=== PATIENT | male | born 1990 | race Caucasian/White ===

== ENCOUNTER 2018-06-05 17:28 | Inpatient (IN) | payer OTHER ==
--- NOTE | 2018-06-05 17:49 | ED ---
Psychiatric Complaint - HPI Summary HPI Summary: This patient is a 28 year old M presenting to [facility] after being sent from his psychiatrists office for having thoughts of suicide. He has not plan of prior attempts. He states his sx are waxing and waning and this year they are seasonal. He states this fall has been very tough for him and he states he did recently have a medication change. He reports irregular sleep and states he is currently having suicidal thoughts. Pt takes Risperdal 1.5mg qd, klonopin 0.5mg qhs, and Zoloft 100mg. also the patient takes two ketamine lozenges a day and has infusions once a month Hx PTSD, OCD, depression, bipolar, anxiety, and psychotic features. - History Of Current Complaint Chief Complaint: EDMentalHealth Hx Obtained From: Patient Onset/Duration: Still Present Timing: Constant Severity Initially: Moderate Severity Currently: Moderate Character: Depressed Related History: Positive For: Prior Psychiatric Issues Has Suicidal: Reports: Thoughts. Denies: With A Plan - Allergies/Home Medications Allergies/Adverse Reactions: Allergies Allergy/AdvReac Type Severity Reaction Status Date / Time No Known Allergies Allergy Verified 06/05/18 17:34 Home Medications: Home Medications Sertraline* [Zoloft*] 100 mg PO DAILY 06/05/18 [History Confirmed 06/05/18] risperiDONE [Risperidone] 1.5 mg PO BEDTIME 06/05/18 [History Confirmed 06/05/18 ] PMH/Surg Hx/FS Hx/Imm Hx Endocrine/Hematology History: Denies: Hx Blood Transfusions, Hx Sickle Cell Disease, Hx Anemia Psychiatric History: Reports: Hx Anxiety, Hx Depression, Hx Post Traumatic Stress Disorder, Hx Bipolar Disorder, Other Psychiatric Issues/Disorders - PTSD , OCD, depression, bipolar, anxiety, and psychotic features. Infectious Disease History: No Infectious Disease History: Denies: Traveled Outside the [place] in Last 30 Days - Family History Known Family History: Positive: Other - bipolar and substance abuse Negative: Respiratory Disease, Seizure Disorder - Social History Alcohol Use: Occasionally Hx Substance Use: No Substance Use Type: Reports: None Hx Tobacco Use: No Smoking Status (MU): Never Smoked Tobacco Review of Systems Negative: Fever Positive: Depressed, Other - SI All Other Systems Reviewed And Are Negative: Yes Physical Exam - Summary Physical Exam Summary: VITAL SIGNS: Reviewed. GENERAL: Patient is a well-developed and nourished male who is lying comfortable in the stretcher. Patient is not in any acute respiratory distress. HEAD AND FACE: No signs of trauma. No ecchymosis, hematomas or skull depressions. No sinus tenderness. EYES: PERRLA, EOMI x 2, No injected conjunctiva, no nystagmus. EARS: Hearing grossly intact. Ear canals and tympanic membranes are within normal limits. MOUTH: Oropharynx within normal limits. NECK: Supple, trachea is midline, no adenopathy, no JVD, no carotid bruit, no c- spine tenderness, neck with full ROM. CHEST: Symmetric, no tenderness at palpation LUNGS: Clear to auscultation bilaterally. No wheezing or crackles. CVS: Regular rate and rhythm, S1 and S2 present, no murmurs or gallops appreciated. ABDOMEN: Soft, non-tender. No signs of distention. No rebound no guarding, and no masses palpated. Bowel sounds are normal. EXTREMITIES: FROM in all major joints, no edema, no cyanosis or clubbing. NEURO: Alert and oriented x 3. No acute neurological deficits. Speech is normal and follows commands. SKIN: Dry and warm PSYCH: Depressed, quiet. No homicidal thoughts or plan. No signs of psychosis or pressure speech. No tangential speech. Triage Information Reviewed: Yes Vital Signs On Initial Exam: Initial Vitals Temp Pulse Resp BP Pulse Ox 98 F 79 16 150/90 98 06/05/18 17:30 06/05/18 17:30 06/05/18 17:30 06/05/18 17:30 06/05/18 17:30 Vital Signs Reviewed: Yes Diagnostics - Vital Signs Vital Signs Temp Pulse Resp BP Pulse Ox 06/05/18 17:30 98 F 79 16 150/90 98 - Laboratory Result Diagrams: 06/05/18 20:22 06/05/18 20:22 Lab Statement: Any lab studies that have been ordered have been reviewed, and results considered in the medical decision making process. Course/Dx - Course Assessment/Plan: This patient is a 28 year old M presenting to [facility] after being sent from his psychiatrists office for having thoughts of suicide. He has not plan of prior attempts. He states his sx are waxing and waning and this year they are seasonal. He states this fall has been very tough for him and he states he did recently have a medication change. He reports irregular sleep and states he is currently having suicidal thoughts. Pt takes Risperdal 1.5mg qd, klonopin 0.5mg qhs, and Zoloft 100mg. also the patient takes two ketamine lozenges a day and has infusions once a month. Hx PTSD, OCD, depression, bipolar, anxiety, and psychotic features. Blood work w/o a significant abnormality. He is medically cleared. He is awaiting for a MHE. Patient is hemodynamically stable and A+O x 3. Patient will be signed out to Dr. Chin at shift change. - Differential Dx/Clinical Impression Differential Diagnosis/HQI/PQRI: Positive: Anxiety, Depression, Suicidal Ideation Provider Diagnosis: Unspecified psychosis Discharge - Sign-Out/Discharge Documenting (check all that apply): Patient Departure Signing out patient TO: Sarah Chin - Discharge Plan Condition: Stable Disposition: PSYCHIATRIC FACILITY[place] [place] - Billing Disposition and Condition Condition: STABLE Disposition: Psychiatric Facility [facility] [place] - Attestation Statements Document Initiated by Scribe: Yes Documenting Scribe: Octavio Plata Provider For Whom Scribe is Documenting (Include Credential): Santos Marino MD Scribe Attestation: Octavio Velasco, scribed for Santos Marino MD on 06/12/18 at 0741. Scribe Documentation Reviewed: Yes Provider Attestation: The documentation as recorded by the Octavio rodriguez accurately reflects the service I personally performed and the decisions made by me, Santos Marino MD
[2018-06-05 20:27] LABS: ABS Basophils 0 10^3/ul (0-0.2); ABS Eosinophils 0.1 10^3/ul (0-0.6); ABS Lymphocytes 1.6 10^3/ul (1.0-4.8); ABS Monocytes 0.6 10^3/ul (0-0.8); ABS Nucleated RBC 0 10^3/ul; Eosinophil % 1.9 % (0-6); Hematocrit 41 % (42-52); Hemoglobin 14.3 g/dl (14.0-18.0); Lymphocyte % 21.9 % (25-47); Mean Corpuscular HGB Conc 35 g/dl (31-36); Mean Corpuscular Hemoglobin 31 pg (27-31); Mean Corpuscular Volume 88 fL (80-94); Mean Platelet Volume 8.5 fL (7.4-10.4); Nucleated Red Blood Cells % 0.1; Platelet Count 218 10^3/ul (150-450); Red Blood Count 4.62 10^6/ul (4.00-5.40); Red Cell Distribution Width 12 % (10.5-15); White Blood Count 7.4 10^3/ul (3.5-10.8)
[2018-06-05 20:44] LABS: EGFR Non-African American 102.5 (>60)
[2018-06-05 21:24] LABS: Urine Appearance Clear; Urine Blood Negative (Negative); Urine Color Straw; Urine Ketones Negative (Negative); Urine Protein Negative (Negative); Urine Specific Gravity 1.006 (1.010-1.030); Urine Urobilinogen Negative (Negative)
[2018-06-05] MEDS ORDERED: LORazepam TAB(*) 1 MG PO ONE (22:54)
--- NOTE | 2018-06-05 22:59 | ED ---
Progress - Progress Note Progress Note: This pt was signed out from Dr. Marino, pending disposition, awaiting MHE. Pt had a mental health evaluation and his case was reviewed by Dr. John, psychiatrist. Dr. John will admit the pt involuntarily with diagnosis of unspecified psychosis. Course/Dx - Diagnoses Provider Diagnoses: Unspecified psychosis Discharge - Sign-Out/Discharge Documenting (check all that apply): Patient Departure - Admit to [facility] [place] PSYCH, Receiving Sign-Out Receiving patient FROM: Santos Marino - Discharge Plan Condition: Stable Disposition: PSYCHIATRIC FACILITY-[facility] [place] Referrals: No Primary Care Phys,NOPCP [Primary Care Provider] - - Attestation Statements Document Initiated by Scribe: Yes Documenting Scribe: Veda Lema Provider For Whom Scribe is Documenting (Include Credential): Sarah Chin MD Scribe Attestation: Veda Velasco, scribed for Sarah Chin MD on 06/06/18 at 0416.
[2018-06-06] MEDS ORDERED: Al Hydrox/Mg Hydrox/Simet LIQ* 30 ML UDC PO PRN (06:13)
[2018-06-06] MEDS ORDERED: Acetaminophen TAB* 325 MG PO PRN (06:13)
[2018-06-06] MEDS: LORazepam TAB(*) 1 MG PO SCH ×2 (08:09→14:14)
[2018-06-06] MEDS: Vitamin THERAPEUTIC TAB PO SCH (08:09)
[2018-06-06] MEDS ORDERED: hydrOXYzine HCL TAB* 50 MG PO PRN (15:04)
[2018-06-06] MEDS ORDERED: LORazepam TAB(*) 1 MG PO PRN (15:04)
[2018-06-06] MEDS: risperiDONE TAB* 1 MG PO SCH (20:03)
[2018-06-06] MEDS: lamoTRIgine TAB(*) 25 MG PO SCH (20:03)
[2018-06-06] MEDS: Sertraline* 100 MG TAB PO SCH (20:05)
--- NOTE | 2018-06-07 01:30 | HP ---
HISTORY AND PHYSICAL: DATE OF ADMISSION: 06/06/18 PROVIDER: Haleigh Pandya NP, Psychiatry. SUPERVISING PHYSICIAN: Flash Morales MD * (DICTATED BY HALEIGH PANDYA NP ) JUSTIFICATION FOR ADMISSION: The patient is in need of 24-hour supervision and care secondary to suicidal ideation with plans. CHIEF COMPLAINT: "One of my core values is being dedicated to what I do. I am disappointed in myself, as at 28, I thought I was going to be a more significant person." HISTORY OF PRESENT ILLNESS: Colt who goes by Woo is a 28-year-old single white male with a history of depression, anxiety, and psychosis, who arrives brought in on a 9.39 status, brought in by himself following a trip to his therapist who then sent him to his psychiatrist, Dr. Montes, who then requested that he please come to the hospital following serious threats with plans to end his own life. Woo is an intense young man, who has been in mental health treatment since he was 17 years old. He states he has always had lots of anxiety about school, school work, and work and calls himself a perfectionist, who has a very difficult time with criticism. In addition to anxiety, he has a great degree of depression. He is extremely disappointed in himself feeling as though he should be better than he is and had accomplished more. He states he is lonely and disappointed. His anxiety is related to his self-esteem. He states that he could tolerate the anxiety, but when it comes with depression together, he has suicidal ideation. He has in the past, in his early 20s, been psychotic. He is unable to comment on that further. PAST PSYCHIATRIC HISTORY: Woo has never been admitted to a psychiatric hospital before. He currently sees, Henry Costa, as a therapist in outpatient and Dr. Jhonathan Montes as his psychiatrist. He has a history of suicidal ideation. His current plan is either to overdose or to leave his car running and to be in the garage with the car running. PAST MEDICAL HISTORY: He denies anything of significance. TRAUMA HISTORY: He denies any traumatic events except for being bullied in school, which he called pretty typical. HISTORY OF SUBSTANCE USE: He does not smoke cigarettes. He does not use intoxicants other than alcohol, which he drinks 2 to 5 drinks up to 5 nights a week. He is particularly ashamed of this. MEDICATIONS: His previous psychiatric meds have included: 1. Risperdal. 2. Latuda. 3. Zoloft. 4. Ketamine. 5. Klonopin. 6. Ativan. Currently he is takin. Risperdal 1.5 mg at bedtime. 2. Zoloft 200 mg daily. 3. Ketamine infusion every 4 to 6 hours. 4. Ketamine sublingual lozenges twice a day. 4. He had been on Klonopin 0.5 mg before bed, but that was recently changed to 1 mg with Ativan t.i.d. and then increased to 1.5 mg of Ativan t.i.d. FAMILY HISTORY: Woo states he has a cousin who has bipolar disorder. He states both parents have issues with anxiety and depression. He remarks that he has a younger sister who had severe spina bifida and was "adopted out of the family" at her . He met her once when he was 13 years old, and then 2 weeks ago he met her again. He appeared to be having quite a difficult time remaining logical regarding the amount of care and resources that it took to keep the sister of his alive. He felt guilty because of having these feelings. 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 He lives in [place]. He has worked at [employer] for 3 months. 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 He states he loves technical contents, but managing personalities is very difficult for him. He states he has a constant visceral feeling that he forgets things or that he catastrophizes regarding missing one step or one item. Woo has not been in the . He does not report any legal problems. He is not partnered. He has never had a girlfriend for longer than a few weeks and he states he is lonely in that regard. REVIEW OF SYMPTOMS: Woo reports being fatigued. He denies shortness of breath , heat or cold intolerance, chest pain, or abdominal pain. He denies neurological symptoms. He denies fevers or changes in weight. PHYSICAL EXAMINATION VITAL SIGNS: On 06/06/18 at 0010, temperature was 98.8, pulse 74, respirations 16, O2 sat on room air 98%, blood pressure 120/76. For further exam data, please see the emergency department records. LABORATORY DATA: Most data are within normal limits. Exceptions are hematocrit low at 41. Lymph percentage low at 21.9. Monocyte percentage high at 8.5. All chemistry numbers are within normal limits. Urine, the only exception is that his specific gravity is low at 1.006 and his toxicology screen is clear. He does not currently have a lipid or hemoglobin A1c values on file. We will order those. MENTAL STATUS EXAM: Woo is a slim young man with a dark brown montez and dark brown hair. He does not smile and gives the impression of being extremely intense and unhappy. He is generally calm and cooperative, although there is an irritable possibly hostile edge. His speech is of a normal rate, tone, and volume. He is dysthymic. He has a constricted, frustrated affect. His thought processes are logical. He does not have any delusions. He is not homicidal. He is suicidal. He is not having hallucinations at this time. His insight is good. His judgment is fair to poor. He is alert and oriented x3. DIAGNOSES: [place] I: Bipolar 2 disorder, depressive disorder, generalized anxiety disorder , rule out obsessive compulsive disorder. [place] II: Deferred. IMPRESSION: This is a 28-year-old man, who comes to the hospital following visits to both his therapist and psychiatrist, who both were impressed with his intense desire to end his life by one of two lethal plans. PLAN: Woo is admitted to the adult behavioral health unit and placed on q.15- minute checks for his own safety. He is encouraged to participate in supportive milieu, individual, and group therapies. His estimated length of stay is 5 to 7 days. We will obtain an MMPI for diagnostic clarification. We will titrate medications to efficacy and monitor for mood and thought content. Discharge planning will include family involvement if possible and outpatient providers. HALEIGH PANDYA, JACQUIE [id number]/CPS #: [id number] CAIN
[2018-06-07] MEDS: Vitamin THERAPEUTIC TAB PO SCH (08:28)
[2018-06-07] MEDS: lamoTRIgine TAB(*) 25 MG PO SCH ×2 (08:28→20:20)
--- NOTE | 2018-06-07 14:40 | PN ---
Subjective - Subjective Date of Service: 06/07/18 Service Type: 57250 Hosp care 15 min low complexity Subjective: Jeison is seen in weekend coverage for JACQUIEP, Haleigh Pandya. He is experiencing what could be considered a "flight to health" in that he completely denies symptoms of depression and is requesting discharge to home. "I know I just started taking the lamictal. Could it be that which is helping me feel better? " He denies SI and feels safe. He was visited by his mother today, which went well. He denies side effects from his medications. Objective - Appearance Appearance: Well Developed/Nourished Dysmorphic Features: No Hygiene: Normal Grooming: Well Kept - Behavior Psychomotor Activities: Normal Exhibits Abnormal Movement: No - Attitude and Relatedness Attitude and Relatedness: Cooperative Eye Contact: Good - Speech Quality: Unpressured Latencies: Normal Quantity: Appropriate - Mood Patient's Decription of Mood: "Good" - Affect Observed Affect: Good Affect Consistent with: Euthymia - Thought Process Patient's Thought Process: Coherent Thought Content: No Passive Wish, No Suicidal Planning, No Homicidal Ideation, No Paranoid Ideation - Sensorium Experiencing Hallucinations: No, Sensorium is Clear Type of Hallucinations: Visual: No, Auditory: No, Command: No - Level of Consciousness Level of Consciousness: Alert Orientation: No Intact, No Orientated to Time, No Orientated to Place, No Orientated to Person - Impulse Control Impulse Control: Intact - Insight and Judgement Insight and Judgement: Good - Group Participation Particating in Group Activities: Yes - Medication Management Medication Management Adherence: Yes Assessment - Assessment Merits Inpatient Hospitalization: Consolidate Improvements, Pending Safe DC Plan Inpatient DSM-V Dx: F31.9 Clinical Impression: 28 y.o. single, white male with a history of treatment refractory depression and alcohol misuse admitted on an involuntary 9.39 legal status due to SI. MHU: Problem List - Patient Problems (1) Bipolar disorder, unspecified Current Visit: Yes Status: Acute Priority: High Code(s): F31.9 - BIPOLAR DISORDER, UNSPECIFIED SNOMED Code(s): 54775049 Plan - Plan Treatment Plan: Name: JEISON WESBTER Birthdate: 1990 [id number] The patient is receiving psychopharmacological treatment with sertraline, risperidone, prn lorazepam and now lamotrigine. He appears to be improving. Continue inpatient treatment. Continued Medication Management: Different Medication Medications: Current Medications Acetaminophen (Tylenol Tab*) 650 mg PO Q4H PRN PRN Reason: PAIN or TEMP > 101 F Al Hydrox/Mg Hydrox/Simethicone (Maalox Plus*) 30 ml PO Q4H PRN PRN Reason: INDIGESTION Hydroxyzine HCl (Atarax Tab*) 50 mg PO Q4H PRN PRN Reason: ANXIETY Lamotrigine (Lamictal Tab(*)) 25 mg PO BID [facility] Last Admin: 06/07/18 08:28 Dose: 25 mg Lorazepam (Ativan Tab(*)) 1 mg PO Q4H PRN PRN Reason: ANXIETY Multivitamins (Theragran Tab*) 1 tab PO DAILY [facility] Last Admin: 06/07/18 08:28 Dose: 1 tab Risperidone (Risperdal*) 1.5 mg PO BEDTIME [facility] Last Admin: 06/06/18 20:03 Dose: 1.5 mg Sertraline HCl (Zoloft*) 200 mg PO BEDTIME [facility] Last Admin: 06/06/18 20:05 Dose: 200 mg - Discharge Plan Discharge Plan: Inpatient Hospitalization Lab Results - Lab Results Lab Results: 06/05/18 06/05/18 06/05/18 17:40 17:40 20:22 WBC 7.4 RBC 4.62 Hgb 14.3 Hct 41 L MCV 88 MCH 31 MCHC 35 RDW 12 Plt Count 218 MPV 8.5 Neut % (Auto) 67.1 Lymph % (Auto) 21.9 L [place] % (Auto) 8.5 H Eos % (Auto) 1.9 Baso % (Auto) 0.6 Absolute Neuts (auto) 5.0 Absolute Lymphs (auto) 1.6 Absolute Monos (auto) 0.6 Absolute Eos (auto) 0.1 Absolute Basos (auto) 0 Absolute Nucleated RBC 0 Nucleated RBC % 0.1 Sodium Potassium Chloride Carbon Dioxide Anion Gap BUN Creatinine Est GFR ( Amer) Est GFR (Non-Af Amer) BUN/Creatinine Ratio Glucose Hemoglobin A1c Calcium Total Bilirubin AST ALT Alkaline Phosphatase Total Protein Albumin Globulin Albumin/Globulin Ratio Triglycerides Cholesterol LDL Cholesterol HDL Cholesterol TSH Urine Color Straw Urine Appearance Clear Urine pH 7.0 Ur Specific [place] 1.006 L Urine Protein Negative Urine Ketones Negative Urine Blood Negative Urine Nitrate Negative Urine Bilirubin Negative Urine Urobilinogen Negative Ur Leukocyte Esterase Negative Urine Glucose Negative Salicylates Urine Opiates Screen None detected Acetaminophen Ur Barbiturates Screen None detected Ur Phencyclidine Scrn None detected Ur Amphetamines Screen None detected U Benzodiazepines Scrn None detected Urine Cocaine Screen None detected U Cannabinoids Screen None detected Serum Alcohol 06/05/18 06/05/18 20:22 20:22 WBC RBC Hgb Hct MCV MCH MCHC RDW Plt Count MPV Neut % (Auto) Lymph % (Auto) [place] % (Auto) Eos % (Auto) Baso % (Auto) Absolute Neuts (auto) Absolute Lymphs (auto) Absolute Monos (auto) Absolute Eos (auto) Absolute Basos (auto) Absolute Nucleated RBC Nucleated RBC % Sodium 139 Potassium 3.5 Chloride 106 Carbon Dioxide 26 Anion Gap 7 BUN 11 Creatinine 0.89 Est GFR ( Amer) 124.1 Est GFR (Non-Af Amer) 102.5 BUN/Creatinine Ratio 12.4 Glucose 96 Hemoglobin A1c 4.6 Calcium 9.2 Total Bilirubin 0.40 AST 28 ALT 26 Alkaline Phosphatase 51 Total Protein 6.7 Albumin 4.2 Globulin 2.5 Albumin/Globulin Ratio 1.7 Triglycerides 70 Cholesterol 171 LDL Cholesterol 101 HDL Cholesterol 56.3 TSH 1.13 Urine Color Urine Appearance Urine pH Ur Specific [place] Urine Protein Urine Ketones Urine Blood Urine Nitrate Urine Bilirubin Urine Urobilinogen Ur Leukocyte Esterase Urine Glucose Salicylates < 2.50 Urine Opiates Screen Acetaminophen < 15 Ur Barbiturates Screen Ur Phencyclidine Scrn Ur Amphetamines Screen U Benzodiazepines Scrn Urine Cocaine Screen U Cannabinoids Screen Serum Alcohol < 10
[2018-06-07] MEDS: risperiDONE TAB* 1 MG PO SCH (20:19)
[2018-06-07] MEDS: Sertraline* 100 MG TAB PO SCH (20:20)
[2018-06-08] MEDS: lamoTRIgine TAB(*) 25 MG PO SCH ×2 (08:33→20:05)
[2018-06-08] MEDS: Vitamin THERAPEUTIC TAB PO SCH (08:33)
[2018-06-08] MEDS: Sertraline* 100 MG TAB PO SCH (20:04)
[2018-06-08] MEDS: risperiDONE TAB* 1 MG PO SCH (20:05)
[2018-06-09 08:00] VITALS: BP 120/69
[2018-06-09] MEDS: Vitamin THERAPEUTIC TAB PO SCH (09:00)
[2018-06-09] MEDS: lamoTRIgine TAB(*) 25 MG PO SCH (09:00)
--- NOTE | 2018-06-10 10:42 | DS ---
CC: Henry Costa; Dr. Jhonathan Montes.* DISCHARGE SUMMARY: DATE OF ADMISSION: 06/06/18 DATE OF DISCHARGE: 06/09/18 PROVIDER: Haleigh Pandya NP in Psychiatry. SUPERVISING PHYSICIAN: Dr. Flash Morales.* (DICTATED BY HALEIGH PANDYA NP ) DIAGNOSES: [place] I: Bipolar disorder, not otherwise specified; generalized anxiety disorder and rule out obsessive-compulsive disorder. [place] II: Deferred. CONDITION AT THE TIME OF DISCHARGE: Woo is improved and psychiatrically cleared. He appears to be stable and his mother reports her perception of his health is that he is also stable. He did not participate in groups and was only mildly social with peers. His mother is agreeable to discharge. He eventually did well here psychiatrically. He tolerated the addition of Lamictal well. He will be attending therapy with Henry Costa and medication management with Dr. Jhonathan Montes. MENTAL STATUS EXAMINATION: At the time of discharge, Woo is calm, cooperative , makes good eye contact and is smiling broadly. He is alert and oriented x3. His grooming is excellent. His speech pace is normal. His thought processes are logical. He is not psychotic or delusional. He denies AH, VH, SI, and HI. His insight is fair. His judgment is good. He is willing to follow up and he is urged to see his therapist, Henry Costa. DISCHARGE INSTRUCTIONS TO THE PATIENT: A. Medications: 1. Hydroxyzine 50 mg q.4 hours was ordered on the unit, but he did not use it. 2. Lorazepam 1 mg on the unit was q.4 hours p.r.n. In the outpatient, I have determined that b.i.d. would be sufficient and he is encouraged to in fact cut a milligram tablet in half if he can. 3. We started lamotrigine 25 mg b.i.d. and that will be due to be increased on 06/20/18 to 100 mg. 4. He was on Risperdal 1.5 at bedtime and that remains the case. 5. Sertraline 200 mg at bedtime was also a home medication that we are continuing. B. Diet is regular. C. Activities: As tolerated. Woo is a nonsmoker. There are no studies pending at the time of discharge. D. Followup care: He has appointments with Jhonathan Montes and Woo will be phoned of that appointment; Henry Costa is also going to be in appointment whose date he will receive by phone from us. HOSPITAL COURSE: Part A: Chief complaint: "One of my core values is being dedicated to what I do, I am disappointed in myself as at 28, I thought I was going to be a more significant person." Colt who goes by Woo is a 28-year-old single white male with a history of depression, anxiety, and psychosis, who arrives brought in on a 9.39 status, brought in by himself following a trip to his therapist who then sent him to his psychiatrist, Dr. Montes, who then requested that he please come to the hospital following serious threats with plans to end his own life. Woo is an intense young man, who has been in mental health treatment since he was 17 years old. He states he has always had a lot of anxiety about school, schoolwork and work, and calls himself a perfectionist, who has a very difficult time with criticism. In addition to anxiety, he has a great degree of depression. He is extremely disappointed in himself feeling as though he should be better than he is and had accomplished more. He states he is lonely and disappointed. His anxiety is related to his self-esteem. He states that he could tolerate the anxiety, but when it comes to depression together, he has suicidal ideation. He has in the past in his early 20s been psychotic. He is unable to comment on that further. Part B: Psychiatric treatment was rendered. Woo was admitted to the adult behavioral unit and placed on 15-minute checks for safety, which were increased to 30-minute checks at the end of his stay. In addition, he was permitted to use the computer and the comfort room. Woo isolated himself on the unit and spent most of the his time reading in his room. He felt uncomfortable going to groups and interacted with peers minimally, not wanting to become a part of the milieu, as he did not want to become accustomed to essentially living on a mental health unit. He tolerated med changes well. He did not take any antianxiety medications while he was here, although it was available to him. I spoke with his mother Maria who is concerned about him stating he has episodes like this and she can see it coming. She can hear it in his voice. She states that she came to see him this weekend, that on Saturday he was weeping and hopeless, but by mid Saturday he was more reasonable. 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 I instead believe bipolar disorder is more appropriate due to his past experience with psychosis and his current experience with intense depression. He is on an antipsychotic, Risperdal which he is willing to change to Abilify, but we did not make that change here in the hospital. His hemoglobin A1c is 4.6. His triglycerides are 70, cholesterol 171, LDL cholesterol 101, HDL cholesterol of 56.3. Incidentally , his TSH is 1.13. I did ask him to complete the MMPI, which he chose not to do. I spoke with him this morning wherein he describes his ability to cope with things much better now that he has had time to be alone and think. He described being hopeful. He described being excited about possibilities of changing careers possibly and discovering that his rigid thinking was not actually working for him. In the midst of his discovery, I noticed that he had remains of rigid thinking, but in general he has improved. His affect was completely different. When he arrived on the , he was miserable and dark thoughts surrounded him. At this point, he is hopeful and bright. He is able to laugh and smile. His mother noticed the same experiences. He is much improved. HALEIGH PANDYA, JACQUIE [id number]/[facility] #: [id number] [facility] PSYCHIATRIC HOSPITALLakshmi
== END 2018-06-09 13:45 | disposition home or self-care (01) | DRG 753 ==
LOC: ED 17:28 → BSU 06-06 04:00
PROVIDERS: ADMIT Psychiatry & Neurology Psychiatry; ATTEND Psychiatry & Neurology Psychiatry
DX: F31.9 Bipolar disorder, unspecified (principal); R45.851 Suicidal ideations; F43.10 Post-traumatic stress disorder, unspecified; F42.9 Obsessive-compulsive disorder, unspecified; F41.1 Generalized anxiety disorder; F41.9 Anxiety disorder, unspecified; F29 Unspecified psychosis not due to a substance or known physiological condition; Z81.8 Family history of other mental and behavioral disorders; Z81.4 Family history of other substance abuse and dependence; Z72.89 Other problems related to lifestyle
CPT/HCPCS: 36415; 80053; 80061; 80307; 80320; 80329; 81003; 83036; 84443; 85025; 99222; 99231; 99238; 99284; A9270-GY; G0480